=== PATIENT | female | born 1950 | race African-American/Black ===

== ENCOUNTER 2025-02-10 10:52 | Inpatient (IN) | payer OTHER ==
[~2025-02-10] VITALS: Ht 157.5 cm; Wt 64.4 kg
[2025-02-10] MEDS ORDERED: ONDANSETRON HCL 4MG/2ML INJ IV PRN (12:30)
[2025-02-10] MEDS ORDERED: ZOLPIDEM TARTRATE 5MG TABLET PO PRN (12:30)
[2025-02-10] MEDS ORDERED: MAGNESIUM/ALUMINUM HYDROXIDE/SIMETHICONE 30ML UDC PO PRN (12:30)
[2025-02-10] MEDS ORDERED: HYDROCODONE/ACETAMINOPHEN 5/325MG TABLET PO PRN (12:30)
[2025-02-10] MEDS ORDERED: NALOXONE HCL 0.4MG/ML VIAL IV PRN (14:00)
[2025-02-10] MEDS: ENOXAPARIN 40MG/0.4ML SYR SUBCUT SCH (15:00)
[2025-02-10] MEDS: ARIPIPRAZOLE 5MG TABLET PO ONE (20:45)
[2025-02-10 23:20] VITALS: BP 135/64; PULSE 58; RESP 17; TEMP 36.3068
[2025-02-11] VITALS (7 sets, daily range): BP systolic 114–166; BP diastolic 59–97; PULSE 58–70; RESP 17–18; TEMP 36.3–36.6; O2SAT 100
[2025-02-11] MEDS: ACETAMINOPHEN 325MG TABLET PO PRN (04:11)
[2025-02-11 06:30] LABS: BASOPHILS % 0.6 % (0.0-2.0); EOSINOPHILS % 2.3 % (0.0-5.0); HEMATOCRIT. 34.0 % (36.0-48.0); HEMOGLOBIN. 11.2 g/dL (12.0-16.0); LYMPHOCYTES % 51.1 % (20.0-50.0); MEAN PLATELET VOLUME 8.3 fl (7.4-10.4); MONOCYTES % 13.0 % (2.0-8.0); NEUTROPHILS % 33.0 % (40.0-76.0); PLATELET 210 x1000/uL (130-400); RED BLOOD CELL COUNT 4.04 mill/uL (4.2-5.4); RED CELL DISTRIBUTION WIDTH 14.2 % (11.6-14.6)
[2025-02-11 07:01] LABS: CREATININE 0.7 mg/dL (0.6-1.0); UREA NITROGEN BLOOD 14 mg/dL (9-23)
[2025-02-11] MEDS: PANTOPRAZOLE SODIUM 40 MG/VIAL IV SCH (08:04)
[2025-02-11] MEDS: CLONIDINE 0.1MG TABLET PO PRN (16:48)
[2025-02-12] VITALS: BP 108/64; PULSE 59; RESP 18; TEMP 36.5; O2SAT 100
[2025-02-12 04:00] VITALS: BP 144/91; PULSE 70; RESP 17; TEMP 36.7; O2SAT 100
[2025-02-12 07:03] LABS: BASOPHILS % 0.5 % (0.0-2.0); EOSINOPHILS % 2.8 % (0.0-5.0); HEMATOCRIT. 39.1 % (36.0-48.0); HEMOGLOBIN. 12.6 g/dL (12.0-16.0); LYMPHOCYTES % 61.1 % (20.0-50.0); MEAN PLATELET VOLUME 7.9 fl (7.4-10.4); MONOCYTES % 8.4 % (2.0-8.0); NEUTROPHILS % 27.2 % (40.0-76.0); PLATELET 248 x1000/uL (130-400); RED BLOOD CELL COUNT 4.60 mill/uL (4.2-5.4); RED CELL DISTRIBUTION WIDTH 14.4 % (11.6-14.6)
[2025-02-12 07:06] LABS: CREATININE 0.8 mg/dL (0.6-1.0); UREA NITROGEN BLOOD 13 mg/dL (9-23)
[2025-02-12 08:00] VITALS: BP 124/78; PULSE 60; RESP 18; TEMP 36.8; O2SAT 94
[2025-02-12 12:00] VITALS: BP 134/74; PULSE 67; RESP 17; TEMP 36.5; O2SAT 97
[2025-02-12 16:00] VITALS: BP 136/61; PULSE 58; RESP 15; TEMP 36.5; O2SAT 95
== END 2025-02-13 09:58 | disposition home or self-care (01) | DRG 556 ==
LOC: ER 10:52 → EDBEDREQSVC 12:14 → EDBEDREQTM 12:14 → EDBEDREQ 12:14 → ENRESERV 21:48 → 8EST 22:46
PROVIDERS: ADMIT Internal Medicine; ATTEND Internal Medicine
DX: M79.606 Pain in leg, unspecified (principal); F20.0 Paranoid schizophrenia; I11.0 Hypertensive heart disease with heart failure; I50.9 Heart failure, unspecified; Z79.899 Other long term (current) drug therapy
CPT/HCPCS: 36415; 80048; 84443; 85025; 99285; J1650